=== PATIENT | female | born 1990 | race Caucasian/White ===

== ENCOUNTER 2016-11-10 12:47 | Emergency (ER) | payer MEDICAID, OTHER ==
[~2016-11-10] VITALS: Ht 172.7 cm; Wt 72.0 kg
[2016-11-10] MEDS ORDERED: PNV1TABL76 PO (13:06)
[2016-11-10 19:07] LABS: BASOPHILS % 0.3 % (0.0-2.0); EOSINOPHILS % 0.4 % (0.0-5.0); HEMATOCRIT. 38.2 % (36.0-48.0); HEMOGLOBIN. 12.8 g/dL (12.0-16.0); LYMPHOCYTES % 17.3 % (20.0-50.0); MEAN CORPUSCULAR HEMOGLOBIN 28.6 pg (28.0-32.0); MEAN CORPUSCULAR HGB CONC 33.5 g/dL (31.0-37.0); MEAN CORPUSCULAR VOLUME 85.2 fL (81.0-99.0); MEAN PLATELET VOLUME 8.8 fl (7.4-10.4); MONOCYTES % 5.6 % (2.0-8.0); NEUTROPHILS % 76.4 % (40.0-76.0); PLATELET 159 x1000/uL (130-400); RED BLOOD CELL COUNT 4.48 mill/uL (4.2-5.4); RED CELL DISTRIBUTION WIDTH 14.1 % (11.6-14.6); WHITE BLOOD COUNT 7.6 x1000/uL (4.5-11.0)
[2016-11-10 19:12] LABS: CHLORIDE 104 mEq/L (98-107); INDEX HEMOLYSI 1 (1-3); INDEX ICTERIC 1 (1-4); INDEX LIPEMIC 1 (1-3)
[2016-11-10 19:22] LABS: ANION GAP 15; CALCIUM 8.7 mg/dL (8.5-10.1); CARBON DIOXIDE 26 mEq/L (21-32); UREA NITROGEN BLOOD 8 mg/dL (7-21); eGFR > 60 mL/min (>60)
[2016-11-10 19:37] LABS: B-HCG QUANTITATIVE 3227 mIU/mL (<3)
[2016-11-10 20:39] LABS: CLARITY URINE CLOUDY (CLEAR); COLOR URINE RED (YELLOW); GLUCOSE URINE NEGATIVE (NEGATIVE); KETONES URINE NEGATIVE (NEGATIVE); LEUKOCYTE ESTERASE URINE 1+ (NEGATIVE); NITRITE URINE NEGATIVE (NEGATIVE); OCCULT BLOOD URINE 3+ (NEGATIVE); PH URINE 5.5 (4.5-8.0); PROTEIN URINE TRACE (NEGATIVE); SPECIFIC GRAVITY URINE 1.019 (1.005-1.030); UROBILINOGEN URINE 0.2 E.U./dL (0.2-1.0)
[2016-11-10 21:06] LABS: RBC URINE TNTC /hpf (0-2)
[2016-11-10 21:07] LABS: MUCUS URINE TRACE /lpf (< = 2+); SQUAMOUS EPITHELIAL CELL URINE FEW /lpf (RARE/1+); WBC URINE 0-2 /hpf (0-2)
[2016-11-10 21:08] LABS: BACTERIA URINE 1+
[2016-11-10 21:30] VITALS: BP 121/69
== END 2016-11-10 22:08 | disposition home or self-care (01) ==
LOC: ER 18:56
DX: O20.0 Threatened abortion (principal); O23.41 Unspecified infection of urinary tract in pregnancy, first trimester; Z3A.01 Less than 8 weeks gestation of pregnancy
CPT/HCPCS: 36415; 76801; 80048; 81001; 84702; 85025; 86850; 86900; 99285